=== PATIENT | female | born 1945 | race Caucasian/White ===

== ENCOUNTER 2017-06-24 09:16 | Outpatient (CLI) | payer MEDICARE ==
--- NOTE | 2017-06-24 13:32 | MRI ---
BRAIN MRI WITHOUT CONTRAST: Date: 06/24/17 INDICATION: Memory loss. Recent fall. FINDINGS: Ventricular system is prominent in size with age-related parenchymal volume loss demonstrated. No ac ely [place] infarction or midline shift. No intracranial hemorrhagic susceptibility. There is mi ld chronic microvascular ischemic disease with superimposed chronic cavitary lacunar infarctions. There is a focus of intrinsic T1 hyperintensity with juarez artifact incompletely assessed. This is l ocated long the right aspect of the tectal plate. [place] right intraocular lens is absent. IMPRESSION: 1. Indeterminate intrinsic T1 hyperintensity with juarez artifact along the right aspect of the tect um. Primary considerations would include calcium, hemorrhage, and/or component of macroscopic fat. T his may be further assessed with dedicated follow-up CT head exam. In addition, fat suppression T1-w eighted imaging would prove useful. 2. No acute intracranial abnormalities. 3. Chronic microvascular ischemic disease and remote lacunar infarctions. POS: LENORA
== END 2017-06-24 09:17 | disposition home or self-care (01) ==
LOC: TBSIIMAG 09:16
PROVIDERS: ATTEND Student in an Organized Health Care Education/Training Program
DX: G31.84 Mild cognitive impairment of uncertain or unknown etiology (principal); F80.1 Expressive language disorder; I67.82 Cerebral ischemia
CPT/HCPCS: 70551

== ENCOUNTER 2017-07-12 12:00 | Inpatient (IN) | payer MEDICARE ==
[2017-07-23] MEDS ORDERED: Fentanyl 100 MCG/2 ML VIAL ONE ×2 (07:56→09:08)
[2017-07-23] MEDS ORDERED: Dexamethasone 4 mg/ml Vial ONE (07:56)
[2017-07-23] MEDS ORDERED: Midazolam HCl 2 mg/2 ml Vial ONE (07:56)
[2017-07-23] MEDS ORDERED: cefOXitin Sodium 2 GM, Syringe 1 ML in Sterile Water 10 ML SLOW IVP SCH (08:45)
[2017-07-23] MEDS ORDERED: Bupivacaine/Epinephrine 0.25% 30 ML VIAL ONE (09:15)
[2017-07-23] MEDS ORDERED: Lidocaine 2% w/Epinephrine 1:200K 20 ML VIAL ONE (09:15)
[2017-07-23] MEDS ORDERED: Propofol 200 MG/20 ML VIAL ONE (09:37)
[2017-07-23] MEDS ORDERED: Lidocaine 2% PF 10 ML AMP (For Epidural Use) ONE (09:37)
[2017-07-23] MEDS ORDERED: Dexamethasone 20 MG/5 ML VIAL ONE (09:37)
[2017-07-23] MEDS ORDERED: Glycopyrrolate 0.2 MG/ML 5 ML SYRINGE ONE (09:37)
[2017-07-23] MEDS ORDERED: PHENYLEPHRINE-NS 100 MCG/ML 10 ML SYRINGE ONE (09:37)
[2017-07-23] MEDS ORDERED: ePHEDrine/0.9% NaCl/PF SYRINGE 50 mg/10 ml ONE (09:37)
[2017-07-23] MEDS ORDERED: Ondansetron HCl/PF 4 MG/2 ML Vial ONE (09:37)
[2017-07-23] MEDS ORDERED: Promethazine HCl 25 MG/ML VIAL IM PRN ×2 (12:19→13:58)
[2017-07-23] MEDS ORDERED: Promethazine HCl 25 MG/ML VIAL SLOW IVP PRN (12:19)
[2017-07-23] MEDS ORDERED: HYDROmorphone 2 MG/ML VIAL SLOW IVP PRN (12:19)
[2017-07-23] MEDS ORDERED: Ondansetron HCl/PF 4 MG/2 ML Vial IVP PRN ×2 (12:19→13:58)
[2017-07-23] MEDS ORDERED: hydrALAZINE 20 MG/ML VIAL SLOW IVP PRN (13:58)
[2017-07-23] MEDS ORDERED: cefOXitin Sodium 1 GM in Sodium Chloride 0.9% 100 ML IVPB SCH (14:00)
[2017-07-23] MEDS ORDERED: Morphine 4 MG/ML VIAL IV PRN ×2 (14:15)
[2017-07-23] MEDS ORDERED: Bupivacaine HCl 0.5%/Epinephrine 1:200,000/PF 30 ml Vial ONE (14:45)
[2017-07-23] MEDS: D5 1/2 NS w/20 mEq KCL 1,000 ML IV SCH (16:44)
[2017-07-23] MEDS: metroNIDAZOLE 500 MG in Premix Bag 1 BAG IVPB SCH ×3 (16:45→18:15)
[2017-07-23 16:47] VITALS: BMI 21.8
[2017-07-23] MEDS: Acetaminophen 1,000 MG in Premix Bag 1 BAG IVPB SCH (20:52)
[2017-07-23] MEDS: Ketorolac Tromethamine 30 MG/ML VIAL IVP SCH (20:52)
[2017-07-23] MEDS: Famotidine/PF 20 mg/2ml Vial SLOW IVP SCH (20:53)
[2017-07-23] MEDS: Enoxaparin Sodium 40 MG/0.4 ML SYRINGE SC SCH (20:53)
[2017-07-23] MEDS: Famotidine 20 MG TAB PO SCH (22:05)
--- NOTE | 2017-07-23 23:16 | OP ---
DATE OF OPERATION: 07/23/2017 PREOPERATIVE DIAGNOSIS: Sigmoid colon polyp. POSTOPERATIVE DIAGNOSIS: Sigmoid colon polyp. OPERATION PERFORMED: Laparoscopic sigmoid colectomy with colorectal anastomosis. SURGEON: Paco Beasley M.D. ANESTHESIA: General endotracheal. INDICATIONS: The patient is a 71-year-old white female. She presented with recent colonoscopy reve aling a 3.5 cm polyp within the sigmoid colon. This was not colonoscopically removable. She is mel en to the operating room at this time for laparoscopic sigmoid colectomy. DESCRIPTION OF OPERATION: Informed consent was obtained. The patient was taken to the operating ro om where general endotracheal anesthesia was obtained with the patient in supine position. Abdomen was prepped with ChloraPrep and draped in sterile fashion. Local anesthetic was infiltrated and a 5 -mm supraumbilical incision was created through which a Veress needle was passed into the peritoneal cavity. Pneumoperitoneum was established using carbon dioxide up to a pressure of 15 mmHg. A 5-mm trocar port was passed through this same incision. Laparoscopic camera was passed through this por t. Under direct vision, a 12- mm right lower abdominal port was placed. A site was selected for th e extraction site and an 8-cm oblique left abdominal incision was created. Dissection was carried t hrough the skin and subcutaneous tissue, and then muscle splitting was used to gain access into the abdominal cavity. The Luke wound retractor was placed followed by the GelPort. Left hand was passed into the abdominal cavity and dissection was continued. The omentum was adhere nt to the left abdominal wall, thus obscuring the left colon. This was mobilized with LigaSure. Th ere were some functional adhesions involving the sigmoid colon and these were taken down from the la teral abdominal wall. The patient had a redundant sigmoid colon extending down to the pelvis. The two tattoos marking the proximal and distal extent of the mass were identified on the antimesenteric side of the bowel within the mid sigmoid colon. The left colon was mobilized first by incising the white line of Toldt up to the splenic flexure and then mobilizing the mesentery off the underlying fascia of Toldt. The peritoneum on the right side of the sigmoid mesentery was incised and dissection was carried down into the pelvis incising the p eritoneum of the upper mesorectum. A site was selected at the rectosigmoid junction. A mesenteric window was created and the upper rectum was divided with a single fire of the blue load of the Echel on stapler. The mesentery was taken down in an ascending fashion using the LigaSure device. The le ft ureter was identified and preserved. A site was selected in the descending colon that would easi ly reach down to the staple line and this was marked with the LigaSure device. The colon was then w ithdrawn uneventfully through the Luke wound retractor. The remainder of the sigmoid mesentery wa s taken down using the LigaSure device. The area was then toweled off with sterile towels and an enterotomy was created. This was found to easily tolerate the EEA sizers. I chose 29-mm EEA stapler and the anvil was obtained and passed thr ough the colotomy a few centimeters proximally and brought out antimesenteric. The colotomy was the n excluded with the segment to be resected with another firing of the REED stapler. This segment of colon was passed off the field. The colon was opened to examine the specimen, it was removed and th ere was noted to be a large pedunculated polyp. The post was painted with Betadine. A pursestring suture of 3-0 Prolene was placed around the base of the anvil. The bowel was then dropped back into the abdominal cavity. Gloves were changed and all of the instruments were used to hold the bowel was opened were passed of f the field. Cautery and suction was passed off as well. Pneumoperitoneum was reestablished and from below, the patient had a rectal exam followed by passage of the EEA sizers up to the staple line. The 29-mm stapler was then passed up to the staple line u nder direct vision and the spike was brought out through the anterior aspect of the staple line. Th is was mated to the anvil and these two segments were anastomosed by firing the stapler. The staple r was removed and the donuts were inspected, which were found to be intact. The bowel was insufflat ed with the anastomosis under water and there was no evidence of an air leak. The 12-mm port site fascia was closed with 0 Vicryl suture using a GraNee needle. All irrigant from within the abdomen was removed. All ports and instruments were removed under direct vision. The A lissette wound retractor was removed as well. The abdominal skin was thoroughly cleansed and all instr uments that had been utilized to include the laparoscopic instruments were passed off the field. Gown and gloves were changed by myself and my closing trust operations assistant. New towels were placed. The fasci a at the left lower quadrant incision was closed in two layers using #1 PDS. Additional local anest hetic was infiltrated during closure. The wound was then thoroughly irrigated with about 2 liters o f saline. The other 2 port sites were cleansed as well. The remainder of the wound was closed in l azar with 3-0 and 4-0 Monocryl. The other port sites were closed with 4-0 Monocryl subcuticular grullon ture. Dermabond was placed externally over each of the 3 incisions. There were no complications. Blood loss was negligible. The patient tolerated the procedure well and was taken to recovery room in stable condition.
[2017-07-24] MEDS: metroNIDAZOLE 500 MG in Premix Bag 1 BAG IVPB SCH (00:08)
[2017-07-24] MEDS: Ketorolac Tromethamine 30 MG/ML VIAL IVP SCH ×4 (01:13→21:13)
[2017-07-24] MEDS: Acetaminophen 1,000 MG in Premix Bag 1 BAG IVPB SCH ×3 (01:13→14:39)
[2017-07-24] MEDS: D5 1/2 NS w/20 mEq KCL 1,000 ML IV SCH ×2 (04:03→18:39)
[2017-07-24 05:18] LABS: #Lymphocytes 0.8 thou/uL (1.20-3.40); #Monocytes 0.6 thou/uL (0.11-0.59); #Neutrophils 11.2 thou/uL (1.40-6.50); %Basophils 0.1 % (0.0-1.0); %Eosinophils 0.1 % (0.0-10.0); %Lymphocytes 6.4 % (21.0-51.0); %Monocytes 4.5 % (0.0-10.0); Hematocrit 31.5 % (36.0-47.0); Mean Platelet Volume 6.5 fL (7.4-10.4); Red Blood Cell (RBC) Count 3.38 mill/uL (4.20-5.40); White Blood Cell (WBC) Count 12.6 thou/uL (4.8-10.8)
[2017-07-24 05:30] LABS: Anion Gap 13 mmol/L (10-20); BUN (Urea Nitrogen) 8 mg/dL (9.8-20.1); Calc. Creatinine Clearance 60 mL/min (70-130); Calcium 9.2 mg/dL (7.8-10.44); Carbon Dioxide 22 mmol/L (23-31); Chloride 104 mmol/L (98-107); Estimated GFR-MDRD 75
[2017-07-24] MEDS: Famotidine 20 MG TAB PO SCH ×2 (08:02→21:12)
[2017-07-24] MEDS ORDERED: FLU VACC QS2017-18 36 mo. & older 0.5 ML SYRINGE IM ONE (09:00)
[2017-07-24] MEDS ORDERED: HYDROcodone/Acetaminophen 7.5/325 mg Tablet PO PRN (09:59)
[2017-07-24] MEDS ORDERED: D5 1/2 NS w/20 mEq KCL 1,000 ML IV SCH (13:45)
[2017-07-24] MEDS: Famotidine/PF 20 mg/2ml Vial SLOW IVP SCH ×2 (14:41→21:14)
[2017-07-24] MEDS ORDERED: Donepezil HCl 10 MG TAB PO SCH (21:00)
[2017-07-24] MEDS: Enoxaparin Sodium 40 MG/0.4 ML SYRINGE SC SCH (21:14)
[2017-07-25] MEDS: Ketorolac Tromethamine 30 MG/ML VIAL IVP SCH (02:26)
[2017-07-25 08:37] VITALS: BP 112/54; TEMP 98.2
--- NOTE | 2017-07-25 12:26 | DIS ---
ADMISSION DIAGNOSIS: Large colonoscopically unresectable sigmoid polyp. POSTOPERATIVE DIAGNOSIS: Large colonoscopically unresectable sigmoid polyp. PROCEDURES PERFORMED: Hand-assisted laparoscopic sigmoid colectomy. ADMISSION HISTORY: The patient is a 71-year-old white female. She was noted to have a large colonos copically unresectable polyp within her sigmoid colon at the time of recent colonoscopy. This was pe rformed secondary to a positive fecal occult blood test. She underwent outpatient antibiotic and mec hanical bowel prep and presented at this time for her surgery. HOSPITAL COURSE: She underwent uneventful surgery on the day of presentation. She has subsequently had an uneventful recuperation. She has advanced her diet appropriately. She has never had any sign ificant discomfort and is taking no narcotic medication. She tolerated clear liquids all day yesterd ay and has started on full liquids today. She denies any nausea or vomiting. She has had flatus, bu t no bowel movement yet. Her abdominal exam is benign. Incisions are nicely healed. She has been a febrile with normal vital signs throughout her hospitalization. She is stable for discharge home at this time. She is on full liquid diet today and advance to soft diet tomorrow. She is instructed to follow up with myself in 10-14 days. She was given a discharge prescription for tramadol, which I s uspect she will never need. Pathology from her resection is still pending at this time.
== END 2017-07-25 10:40 | disposition home or self-care (01) | DRG 331 ==
LOC: SURG A 07-23 07:00 → SJJU 07-23 14:00
PROVIDERS: ADMIT Specialist; ATTEND Specialist
PROC: 0DTN0ZZ Resection of Sigmoid Colon, Open Approach (ICD-10-PCS; principal; 2017-07-23)
PROC: 3E0T3BZ Introduction of Anesthetic Agent into Peripheral Nerves and Plexi, Percutaneous Approach (ICD-10-PCS; 2017-07-23)
DX: K63.5 Polyp of colon (principal); E78.5 Hyperlipidemia, unspecified; Z90.710 Acquired absence of both cervix and uterus
CPT/HCPCS: 36415; 36416; 80048; 85025; 88309; A4216; J0131; J0670; J0694; J1100; J1650; J1885; J2001; J2250; J2405; J2704; J3010; J7050; S0028

== ENCOUNTER 2017-07-12 15:13 | Outpatient (CLI) | payer MEDICARE ==
[2017-07-12 16:50] LABS: #Eosinphils 0.1 thou/uL (0.0-0.7); #Lymphocytes 1.7 thou/uL (1.20-3.40); #Monocytes 0.9 thou/uL (0.11-0.59); #Neutrophils 8.8 thou/uL (1.40-6.50); %Basophils 0.4 % (0.0-1.0); %Lymphocytes 14.7 % (21.0-51.0); %Monocytes 7.7 % (0.0-10.0); Hematocrit 33.5 % (36.0-47.0); Mean Platelet Volume 6.9 fL (7.4-10.4); Red Blood Cell (RBC) Count 3.58 mill/uL (4.20-5.40); White Blood Cell (WBC) Count 11.5 thou/uL (4.8-10.8)
[2017-07-12 17:33] LABS: Anion Gap 14 mmol/L (10-20); BUN (Urea Nitrogen) 12 mg/dL (9.8-20.1); Calc. Creatinine Clearance 0 mL/min (70-130); Calcium 9.1 mg/dL (7.8-10.44); Carbon Dioxide 24 mmol/L (23-31); Chloride 103 mmol/L (98-107); Estimated GFR-MDRD 81
--- NOTE | 2017-08-30 09:54 | EKG ---
Test Reason : Blood Pressure : / mmHG Vent. Rate : 076 BPM Atrial Rate : 076 BPM P-R Int : 156 ms QRS Dur : 070 ms QT Int : 376 ms P-R-T Axes : -02 026 023 degrees QTc Int : 423 ms Normal sinus rhythm Normal ECG No previous ECGs available Confirmed by DR. Mona SMYTH ([id number]) on 08/30/2017 9:54:06 AM Referred By: DELANEY Confirmed By:DR. Mona SMYTH
== END 2017-07-12 15:14 | disposition home or self-care (01) ==
LOC: LABBT 15:13
PROVIDERS: ATTEND Specialist
DX: Z01.818 Encounter for other preprocedural examination (principal); K63.5 Polyp of colon
CPT/HCPCS: 80048; 82378; 83036; 85025; 93005; 93010

== ENCOUNTER 2018-08-14 13:26 | Outpatient (CLI) | payer MEDICARE ==
--- NOTE | 2018-08-14 18:52 | MMO ---
SCREENING MAMMOGRAPHY 08/14/18 COMPARISON: 07/19/17 HISTORY: Screening mammogram. FINDINGS: The patient's mammogram is interpreted with the assistance of computer aided detection. Scattered fibroglandular density present. Benign calcification noted on the right. No dominant mass or architectural distortion. No concerning microcalcifications seen. IMPRESSION: BIRADS 2: Benign Finding(s) Routine annual screening mammography (for women over age 40). POS: LENORA
== END 2018-08-14 13:27 | disposition home or self-care (01) ==
LOC: SCSMAMMO 13:26
PROVIDERS: ATTEND Internal Medicine
DX: Z12.31 Encounter for screening mammogram for malignant neoplasm of breast (principal)
CPT/HCPCS: 77067

== ENCOUNTER 2018-09-15 10:39 | Outpatient (CLI) | payer MEDICARE ==
--- NOTE | 2018-09-15 12:42 | BD ---
BONE DENSITOMETRY: INDICATION: A 72-year-old female for postmenopausal osteoporosis screening. FINDINGS: Lumbar Spine: BMD (g/cm2) L1 0.719 T-Score: -2.5 L2 0.740 T-Score: -2.6 L3 0.655 T-Score: -3.9 L4 0.764 T-Score: -2.7 L1-L4 0.720 T-Score: -3.0 Femoral Neck: 0.559 T-Score: -2.6 Total Femur: 0.715 T-Score: -1.9 Impression: Bone mineral density of the lumbar spine and femoral neck both indicate osteoporosis. When comparison is made to the bone mineral study of 07/26/2017, total lumbar density at that time wa s recorded at 0.741. The femoral neck density on the prior exam was recorded at 0.595. There has be en no significant change in density. POS: LENORA
== END 2018-09-15 10:40 | disposition home or self-care (01) ==
LOC: BICMAMMO 10:39
PROVIDERS: ATTEND Internal Medicine
DX: M81.0 Age-related osteoporosis without current pathological fracture (principal)
CPT/HCPCS: 77080

== ENCOUNTER 2019-02-03 16:03 | Emergency (ER) | payer MEDICARE | END 2019-02-03 16:31 | disposition left against medical advice (07) | LOC: ERS 16:03 | DX: Z53.21 Procedure and treatment not carried out due to patient leaving prior to being seen by health care provider (principal) ==

== ENCOUNTER 2019-02-03 16:54 | Emergency (ER) | payer MEDICARE ==
--- NOTE | 2019-02-03 17:47 | CT ---
CT head without contrast: Multiple axial tomograms obtained through the head without IV enhancement. INDICATIONS: Fall with injury to head COMPARISON: 07/19/2017 FINDINGS: Cortical atrophy with ventriculomegaly and chronic ischemic white matter change. No evidence of intracranial mass, hemorrhage, edema, or infarct. Visualized sinuses and mastoids appear clear. Bony calvarium appears unremarkable. Scalp hematoma over the right frontal bone. IMPRESSION: No acute finding
[2019-02-03] MEDS ORDERED: Bacitracin Zinc Ointment 30 gm TUBE ONE (18:12)
--- NOTE | 2019-02-03 19:25 | CT ---
CT CERVICAL SPINE: 02/03/19 Multiple axial tomograms obtained through the cervical spine with multiplanar reconstructions. INDICATIONS: Trauma. Fall with injury to head and neck. Cervical vertebrae maintain height and alignment. Disc spaces are preserved. There are mild degenerat ghazala changes with facet hypertrophy and spurring. No acute fracture identified. IMPRESSION: No acute cervical spine fracture. POS: LENORA
--- NOTE | 2019-02-03 19:30 | CT ---
CT FACIAL BONES: 02/03/19 Multiple axial tomograms obtained through the facial bones with multiplanar reconstruction. INDICATIONS: Trauma with injury to face. Nasal bones appear intact. Orbits appear intact. Lamina papyracea are intact. The paranasal sinuses are well aerated and clear. The maxilla appears intact. Zygoma appear intact. Mandible appears intact . Soft tissues show hematoma over the right frontal bone and orbit. IMPRESSION: No acute facial bone fracture identified. POS: ABDULAZIZ
== END 2019-02-03 18:24 | disposition home or self-care (01) ==
LOC: SCSER 16:54
DX: S00.83XA Contusion of other part of head, initial encounter (principal); S00.511A Abrasion of lip, initial encounter; Z86.73 Personal history of transient ischemic attack (TIA), and cerebral infarction without residual deficits; Z79.899 Other long term (current) drug therapy; W01.198A Fall on same level from slipping, tripping and stumbling with subsequent striking against other object, initial encounter
CPT/HCPCS: 70450; 70486; 72125

== ENCOUNTER 2019-03-24 10:09 | Emergency (ER) | payer MEDICARE ==
[2019-03-24] MEDS ORDERED: Lidocaine 1% 20 ML MDV ONE (10:44)
[2019-03-24] MEDS ORDERED: Bacitracin 1 PK ONE (11:00)
[2019-03-24] MEDS ORDERED: Acetaminophen 500 MG TAB ONE (11:26)
[2019-03-24] MEDS ORDERED: Adacel (T-DAP) 0.5 ML SYRINGE ONE (11:26)
--- NOTE | 2019-03-24 12:14 | CT ---
CT BRAIN WITHOUT CONTRAST: Date: 03/24/19 HISTORY: Head trauma, fall. COMPARISON: 02/03/19. FINDINGS: Changes of cortical atrophy and chronic small vessel ischemic disease are again seen. The ventricular size is appropriate and the basilar cisterns are patent. No evidence of acute infarct, hemorrhage, m idline shift, or abnormal extra-axial fluid collections are seen. The bony calvarium is intact. There is soft tissue air and swelling in the right posterior parietal scalp with skin ragini. There is so ft tissue swelling in the right periorbital region. IMPRESSION: No CT evidence of acute intracranial process. POS: TPC
--- NOTE | 2019-03-24 12:15 | RAD ---
RIGHT HAND 3 VIEWS: Date: 03/24/19 HISTORY: Hand injury status post fall. FINDINGS: The hand is held in flexion and therefore difficult to assess, but there is a comminuted, more obliqu siobhan oriented fracture involving the proximal phalanx of the little finger. Fracture appears essential ly nondisplaced. No other signs of acute injury. IMPRESSION: Proximal phalanx little finger comminuted fracture. POS: OFF
--- NOTE | 2019-03-24 12:34 | CT ---
CT CERVICAL SPINE WITHOUT CONTRAST: HISTORY: Fall with head injury and neck pain. COMPARISON: 02/03/2019 FINDINGS: The vertebral bodies are normal in height. The disk spaces appear fairly well preserved, and the fac ets are in normal alignment. There is no significant canal or foraminal stenosis, and there is no CT evidence for a fracture. The lung apices are clear. IMPRESSION: No CT evidence of fracture of the cervical spine. POS: OFF
== END 2019-03-24 12:20 | disposition home or self-care (01) ==
LOC: SCSER 10:09
DX: S62.646A Nondisplaced fracture of proximal phalanx of right little finger, initial encounter for closed fracture (principal); S01.01XA Laceration without foreign body of scalp, initial encounter; Z86.73 Personal history of transient ischemic attack (TIA), and cerebral infarction without residual deficits; W19.XXXA Unspecified fall, initial encounter
CPT/HCPCS: 12002; 29130; 70450; 72125; 90471; 90715; J2001

== ENCOUNTER 2019-03-31 10:46 | Emergency (ER) | payer MEDICARE | END 2019-03-31 11:16 | disposition home or self-care (01) | LOC: SCSER/OP 10:46 → EDSTATUS 10:50 → SCSER/OP 11:16 | DX: S01.01XD Laceration without foreign body of scalp, subsequent encounter (principal); Z86.73 Personal history of transient ischemic attack (TIA), and cerebral infarction without residual deficits; Z79.899 Other long term (current) drug therapy; W05.0XXD Fall from non-moving wheelchair, subsequent encounter ==

== ENCOUNTER 2019-05-15 15:02 | Emergency (ER) | payer MEDICARE ==
--- NOTE | 2019-05-15 16:37 | ULT ---
EXAM: Right lower extremity venous Doppler PROVIDED CLINICAL HISTORY: Right lower extremity edema FINDINGS: Grayscale and color Doppler sonography with spectral analysis was performed of the right common femor al, femoral, popliteal, posterior tibial, greater saphenous and profunda femoral veins. The evaluated venous structures demonstrate a normal sonographic appearance. IMPRESSION: No sonographic evidence for right lower extremity deep venous thrombosis.
[2019-05-15 16:45] LABS: #Eosinphils 0.2 thou/uL (0.0-0.7); #Lymphocytes 2.2 thou/uL (1.20-3.40); #Neutrophils 6.3 thou/uL (1.40-6.50); %Basophils 0.4 % (0.0-1.0); %Eosinophils 1.7 % (0.0-10.0); %Lymphocytes 22.6 % (21.0-51.0); %Monocytes 10.7 % (0.0-10.0); %Neutrophils 64.5 % (42.0-75.0); Hemoglobin 14.1 g/dL (12.0-16.0); Mean Corpuscular HGB CONC 34.6 g/dL (32.0-36.0); Mean Corpuscular Hemoglobin 31.1 pg (27.0-31.0); Mean Corpuscular Volume 89.9 fL (78.0-98.0); Mean Platelet Volume 6.4 fL (7.4-10.4); Platelet Count 364 thou/uL (130-400); RBC Distribution Width 12.1 % (11.5-14.5); Red Blood Cell (RBC) Count 4.53 mill/uL (4.20-5.40); White Blood Cell (WBC) Count 9.7 thou/uL (4.8-10.8)
--- NOTE | 2019-05-15 17:10 | CT ---
EXAM: CT brain without contrast HISTORY: Altered mental status and ectasia COMPARISON: 03/24/2019 TECHNIQUE: Multiple contiguous axial images were obtained and a CT of the brain without contrast. FINDINGS: There are scattered hypodensities in the subcortical and periventricular white matter consi stent with small vessel ischemic disease. There is no evidence of hydrocephalus, intracranial hemorrhage, or extra-axial fluid collection. The calvarium and overlying soft tissues are unremarkable. The visualized paranasal sinuses and masto id air cells are well aerated. IMPRESSION: No evidence of acute intracranial abnormality
[2019-05-15 17:14] LABS: ALT (SGPT) 15 U/L (8-55); AST (SGOT) 16 U/L (5-34); Alkaline Phosphatase 80 U/L (40-150); Anion Gap 14 mmol/L (10-20); BUN (Urea Nitrogen) 21 mg/dL (9.8-20.1); Bilirubin, Total 0.4 mg/dL (0.2-1.2); CK (CPK) 170 U/L (29-168); Calc. Creatinine Clearance 0 mL/min (70-130); Calcium 9.7 mg/dL (7.8-10.44); Carbon Dioxide 24 mmol/L (23-31); Chloride 105 mmol/L (98-107); Estimated GFR-MDRD 83; Globulin 2.6 g/dL (2.4-3.5); Glucose 103 mg/dL (83-110); Potassium 3.9 mmol/L (3.5-5.1); Protein, Total 6.6 g/dL (6.0-8.3); Sodium 139 mmol/L (136-145)
[2019-05-15 18:04] LABS: Bacteria/HPF 4+ HPF (None Seen); Bilirubin Negative (Negative); Blood, Urine 2+ (Negative); Clarity Turbid (Clear); Glucose, Urine (Dipstick) Normal (Negative); Leukocyte 500 Leu/uL (Negative); Nitrite 2+ (Negative); Protein, Urine (Dipstick) Negative (Neg-Trace); Squamous Epithelial 0-3 HPF (0-3); Urobilinogen Normal mg/dL (Less than 2); WBC/HPF Greater than 50 HPF (0-3)
[2019-05-15] MEDS ORDERED: cefTRIAXone\\ROCEPHIN 2 GM VIAL ONE (18:38)
--- NOTE | 2019-05-23 13:20 | EKG ---
Test Reason : Blood Pressure : / mmHG Vent. Rate : 099 BPM Atrial Rate : 099 BPM P-R Int : 164 ms QRS Dur : 060 ms QT Int : 354 ms P-R-T Axes : 041 009 023 degrees QTc Int : 454 ms Normal sinus rhythm Normal ECG Confirmed by LANDON BETTENCOURT, PETAR Corrales ([id number]), web editor ANDREZ CARTWRIGHT ([id number]) on 05/23/2019 1:20:46 PM Referred By: Confirmed By:PETAR NAVARRETE MD
== END 2019-05-15 18:55 | disposition home or self-care (01) ==
LOC: ERS 15:02
DX: R60.0 Localized edema (principal); Z86.73 Personal history of transient ischemic attack (TIA), and cerebral infarction without residual deficits; Z79.899 Other long term (current) drug therapy
CPT/HCPCS: 36415; 51701; 70450; 80053; 81003; 81015; 82550; 84484; 85025; 93005; 96361; 96374; A4353; J0696